=== PATIENT | female | born 1990 | race Two or more races ===

== ENCOUNTER 2017-03-10 19:43 | Emergency (ER) | payer OTHER ==
[2017-03-10 20:08] VITALS: BMI 25.9
[2017-03-10 21:06] LABS: BASOPHIL 0.9 % (0-2.0); MCHC 33.6 g/dl (32.0-36.0); MEAN CELL VOLUME 86.3 fl (80-96); MEAN PLT VOLUME 9.1 fl (7.5-11.1); NEUTROPHILS 62.1 % (42.8-82.8); PLATELET COUNT 282 K/MM3 (134-434); RDW 14.2 % (11.6-15.6); WHITE BLOOD COUNT 14.3 K/mm3 (4.0-10.0)
[2017-03-10 21:17] LABS: URINE APPEARANCE CLEAR; URINE BILIRUBIN NEGATIVE (NEGATIVE); URINE COLOR YELLOW; URINE GLUCOSE (UA) NEGATIVE (NEGATIVE); URINE KETONE NEGATIVE (NEGATIVE); URINE LEUK ESTERASE NEGATIVE (NEGATIVE); URINE NITRITE NEGATIVE (NEGATIVE); URINE PROTEIN NEGATIVE (NEGATIVE); URINE UROBILINOGEN NEGATIVE E.U./dl (0.2-1.0)
[2017-03-10 21:22] LABS: URINE BLOOD 3+ (NEGATIVE)
[2017-03-10 21:36] LABS: URINE RBC 21 /hpf (0-3); URINE WBC 1 /hpf (3-5)
--- NOTE | 2017-03-10 21:43 | PDOC ---
History of Present Illness - General Chief Complaint: Vaginal Bleeding Stated Complaint: VAGINAL BLEEDING Time Seen by Provider: 03/10/17 20:28 - History of Present Illness Initial Comments: 03/10/17 21:39 CHIEF COMPLAINT: vag bldg, 7 weks HISTORY OF PRESENT ILLNESS: 26 yo 7 week F with no significant PMH presents to ED with vaginal bleeding and cramping since yesterday. Patient states she was recently seen for minimal vaginal spotting a week ago but was told "everything was ok" and she was sent home with vitamins. Today she is having "too much bleeding and feels cramping and lower abdominal pain." Patient's LMP was 01/07. She denies any discomfort or change with urination. No recent travel or sick contacts. PAST MEDICAL HISTORY: Denies past medical history FAMILY HISTORY: Denies SOCIAL HISTORY: Denies tobacco, alcohol, illicit drug use. SURGICAL HISTORY: Denies ALLERGIES: No known drug allergies REVIEW OF SYSTEMS General/Constitutional: Denies fever or chills. Denies weakness, weight change. HEENT: Denies change in vision. Denies ear pain or discharge. Denies sore throat. Cardiovascular: Denies chest pain or shortness of breath. Respiratory: Denies cough, wheezing, or hemoptysis. Gastrointestinal: Denies nausea, vomiting, diarrhea or constipation. Denies rectal bleeding. Genitourinary: Denies dysuria, frequency, or change in urination. Musculoskeletal: Denies joint or muscle swelling or pain. Denies neck or back pain. Skin and breasts: Denies rash or easy bruising. PHYSICAL EXAM General Appearance: Well-appearing, appropriately dressed. No apparent distress , no intoxication. HEENT: EOMI, PERRLA, normal ENT inspection, normal voice, TMs normal, pharynx normal. No conjunctival pallor. No photophobia, scleral icterus. Respiratory/Chest: Lungs CTAB. Cardiovascular: RRR. S1, S2. Vascular Pulses: Dorsalis-Pedis (R): 2+, Dorsalis-Pedis (L): 2+ Gastrointestinal/Abdominal: Normal bowel sounds. Abdomen soft, non-distended. No tenderness or rebound tenderness. No organomegaly, pulsatile mass, guarding , hernia, hepatomegaly, splenomegaly. Pelvic: Bloody discharge to vaginal vault. Closed cervix. Suprapubic tenderness. External genitalia normal without lesions. Uterus is nontender and normal in size. Lymphatic: No adenopathy, tenderness. Musculoskeletal/Extremities: Normal inspection. FROM of all extremities, normal capillary refill. Pelvis Stable. No CVA tenderness. No tenderness to extremities, pedal edema, swelling, erythema or deformity. Integumentary: Appropriate color, dry, warm. 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 Fully oriented, alert. Appropriate mood/affect. Motor strength 5/5. No appreciable EOM palsy, facial droop or sensory deficit. 03/11/17 00:27 Past History - Past Medical History Allergies/Adverse Reactions: Allergies Allergy/AdvReac Type Severity Reaction Status Date / Time No Known Allergies Allergy Verified 03/10/17 20:07 Home Medications: Ambulatory Orders Pnv#71/Iron/Folic Acid/Dha [Prena1 Maliha Softgel] 1 each PO DAILY 03/10/17 - Psycho/Social/Smoking Cessation Hx Suicidal Ideation: No Smoking History: Never smoked *Physical Exam - Vital Signs Last Vital Signs Temp Pulse Resp BP Pulse Ox 98.3 F 87 20 120/66 98 03/10/17 20:07 03/10/17 20:07 03/10/17 20:07 03/10/17 20:07 03/10/17 20:07 ED Treatment Course - LABORATORY CBC & Chemistry Diagram: 03/10/17 20:56 - ADDITIONAL ORDERS Additional order review: Laboratory Results 03/10/17 20:56 Urine Color Yellow Urine Appearance Clear Urine pH 5.0 Ur Specific [place] 1.020 Urine Protein Negative Urine Glucose (UA) Negative Urine Ketones Negative Urine Blood 3+ H Urine Nitrite Negative Urine Bilirubin Negative Urine Urobilinogen Negative Ur Leukocyte Esterase Negative Urine RBC 21 Urine WBC 1 Ur Epithelial Cells Rare 03/10/17 20:56 RBC 4.67 MCV 86.3 MCHC 33.6 RDW 14.2 MPV 9.1 Neutrophils % 62.1 Lymphocytes % 29.9 Monocytes % 6.1 Eosinophils % 1.0 Basophils % 0.9 - RADIOLOGY Radiology Studies Ordered: Category Date Time Status TRANSVAGINAL US PREG [US] Stat Ultrasound 03/10/17 20:46 Ordered Medical Decision Making - Medical Decision Making 03/10/17 22:33 26 yo 7 week F with no significant PMH presents to ED with worsening vaginal bleeding. On exam, patient has bloody discharge to vaginal vault and dilation of cervix. R/o threatened/incomplete , ectopic. -beta hCG, CBC, T&S -TV US 03/11/17 00:29 Single live intrauterine Gestational age 6 weeks 1 day heart rate 112 bpm Closed cervix No ovarian torsion. Bilateral arterial waveforms. Read by: Dee Bills M.D. Advised patient to follow up with OB tomorrow. Advised patient of signs and symptoms for return to ER; patient verbalized understanding and agrees to plan. *DC/Admit/Observation/Transfer Diagnosis at time of Disposition: Threatened - Discharge Dispostion Disposition: HOME Condition at time of disposition: Stable Admit: No - Patient Instructions Printed Discharge Instructions: DI for Threatened Additional Instructions: As discussed, please keep your appointment with the litigation counsel on Tuesday. Also as discussed, if you experience more than one soaked pad an hour, increased abdominal pain, fever, vomiting, or any new or worsening symptoms, please return to the ER. Norris discutido, por favor mantenga urrutia felipa con el obstetra el . Tambin norris se discuti, si experimenta ms de keri almohadilla empapada por hora, aumento del dolor abdominal, fiebre, vmito o cualquier nuevo o empeoramiento de los sntomas, por favor regrese a la andrae de emergencias.
[2017-03-11 00:46] VITALS: BP 118/68; PULSE 83; TEMP 98
== END 2017-03-11 00:46 | disposition home or self-care (01) ==
LOC: JER 19:43
DX: O20.0 Threatened abortion (principal); Z3A.01 Less than 8 weeks gestation of pregnancy
CPT/HCPCS: 36415; 76817-TC; 81003; 81015; 84702; 85025; 86850; 86900; 86901; 87086; 99283-25

== ENCOUNTER 2017-03-17 15:46 | Emergency (ER) | payer OTHER ==
[2017-03-17 15:56] VITALS: BP 122/70; PULSE 105; TEMP 99.6; BMI 31.4
--- NOTE | 2017-03-17 18:00 | PDOC ---
History of Present Illness - General Chief Complaint: CVA/TIA Stated Complaint: FEVER, RT/LT SIDE NUMBNESS Time Seen by Provider: 03/17/17 17:27 History Source: Patient Exam Limitations: Language Barrier - History of Present Illness Initial Comments: 03/17/17 18:02 26 yo F with no significant PMHx presents with 3 hr history of leg and arm tingling. She states this morning she went to clinic and given abx for phayngitis. When she went home she had some cramping in her calf that lasted for a few hours but then subsided and feels like numbness now. She has states that her hand cramped up on her. Just her thumb. Now she has some tingling but no pain or weakness. No such incidents in past. Does admit to fevers at home and chills. Denies CP, cough, SOB, abd. pain, N/V. 5 Timing/Duration: 4-6 hours Associated Symptoms: reports: fever/chills Past History - Travel Traveled outside of the country in the last 30 days: No Close contact w/someone who was outside of country & ill: No - Past Medical History Allergies/Adverse Reactions: Allergies Allergy/AdvReac Type Severity Reaction Status Date / Time No Known Allergies Allergy Verified 03/17/17 15:50 Home Medications: Ambulatory Orders NK [No Known Home Medication] 03/17/17 Other medical history: Denies - Immunization History Immunization Up to Date: Yes - Psycho/Social/Smoking Cessation Hx Suicidal Ideation: No Smoking History: Never smoked Have you smoked in the past 12 months: No Information on smoking cessation initiated: No Hx Alcohol Use: No Drug/Substance Use Hx: No Review of Systems - Review of Systems Able to Perform ROS?: Yes Is the patient limited Spanish proficient: Yes Constitutional: Yes: Chills, Fever HEENTM: Yes: Throat Pain, Throat Swelling, Difficulty Swallowing All Other Systems: Reviewed and Negative *Physical Exam - Vital Signs Last Vital Signs Temp Pulse Resp BP Pulse Ox 99.6 F 105 H 19 122/70 100 03/17/17 15:51 03/17/17 15:51 03/17/17 15:51 03/17/17 15:51 03/17/17 17:17 - Physical Exam General Appearance: No: Apparent Distress HEENT: positive: EOMI, AKHIL Neck: positive: Lymphadenopathy (R) Respiratory/Chest: positive: Lungs Clear, Normal Breath Sounds. negative: Respiratory Distress, Accessory Muscle Use Cardiovascular: positive: Regular Rhythm, Regular Rate, S1, S2. negative: Edema , JVD, Murmur Gastrointestinal/Abdominal: positive: Normal Bowel Sounds, Flat, Soft Musculoskeletal: positive: Normal Inspection. negative: CVA Tenderness Extremity: positive: Normal Inspection, Normal Range of Motion. negative: Pedal Edema, Swelling, Calf Tenderness, Erythema Integumentary: positive: Normal Color, Dry, Warm. 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 This most like incidental muscle cramping. most likely from improper sleep. P: * Will give reassurance and will need to follow up with OBGYN on Tuesday for recent spontaneous . *DC/Admit/Observation/Transfer Diagnosis at time of Disposition: Muscle cramp, Numbness and tingling sensation of skin - Discharge Dispostion Disposition: HOME Condition at time of disposition: Stable Admit: No - Patient Instructions Printed Discharge Instructions: DI for Numbness/tingling Additional Instructions: Follow up with OBGYN on Tuesday. Take antibiotics as directed. Tylenol for fevers and pain. Regular diet. Plenty of fluids. Increase activity as tolerated. If pain worsens or symptoms do not improve in 48 hrs. please return to ED. Print Language: IRISH
--- NOTE | 2017-03-17 18:29 | PDOC ---
Attending Attestation - Resident Resident Name: Mahad Valderrama - ED Attending Attestation I have performed the following: I have examined & evaluated the patient, The case was reviewed & discussed with the resident, I agree w/resident's findings & plan, Exceptions are as noted - HPI HPI: 03/17/17 18:24 26-year-old Female, diagnosed with acute strep pharyngitis at [facility] earlier in the day presents with atraumatic paresthesias within the C6 dermatomal distribution on the left as well as intermittent cramping to the left calf which is now resolved. - Physicial Exam PE: 03/17/17 18:27 Patient is awake and alert, well-appearing, in no distress. Cranial nerves II through XII are grossly intact; motor is 5 of 54; gait is stable;fine touch and proprioception are intact and equal bilaterally; there is no pronation drift ; evaluation of lower extremity is reveals no asymmetry, there is no point tenderness, Homans is negative bilaterally; - Medical Decision Making 03/17/17 18:28 Patient is a 26-year-old female, recently diagnosed with acute strep rhinitis who presents with C6 dermatomal paresthesias on the left and left calf cramping. Both symptoms are resolving while in the ER. I do not suspect transverse myelitis or demyelinating disease or epidural abscess as cause of patient's paresthesias. Nor do I suspect left lower extremity DVT at this time. There is no asymmetry or calf tenderness. Both symptoms appear to have resolved in the ER. Patient advised to complete the course of amoxicillin prescribed for the strep pharyngitis and follow-up with medical clinic as needed
== END 2017-03-17 18:19 | disposition home or self-care (01) ==
LOC: JER 15:46
DX: R20.8 Other disturbances of skin sensation (principal); R25.2 Cramp and spasm; J02.0 Streptococcal pharyngitis; B95.5 Unspecified streptococcus as the cause of diseases classified elsewhere
CPT/HCPCS: 99282-25

== ENCOUNTER 2018-03-14 08:00 | Inpatient (IN) | payer OTHER ==
[2018-03-14 08:57] VITALS: BMI 32.3
[2018-03-14 09:15] LABS: BASO % 0.4 % (0-2.0); EOS % 0.6 % (0-4.5); HEMATOCRIT 36.9 % (32.4-45.2); HEMOGLOBIN 12.4 GM/dL (10.7-15.3); LYMPH % 26.5 % (8-40); MCH 28.7 pg (25.7-33.7); MCHC 33.6 g/dl (32.0-36.0); MEAN CELL VOLUME 85.6 fl (80-96); MEAN PLT VOLUME 9.6 fl (7.5-11.1); MONO % 4.3 % (3.8-10.2); NEUT % 68.2 % (42.8-82.8); PLATELET COUNT 248 K/MM3 (134-434); RBC 4.31 M/mm3 (3.60-5.2); RDW 14.5 % (11.6-15.6); WHITE BLOOD COUNT 9.2 K/mm3 (4.0-10.0)
[2018-03-14] MEDS ORDERED: OXYTOCIN 30 UNITS in 0.9% NS 30 UNIT/500 ML INFUS.BAG IVPB ONE (09:17)
[2018-03-14 09:32] LABS: INR 0.89 (0.82-1.09); PROTHROMBIN TIME (PATIENT) 10.1 SEC (9.7-13.0)
[2018-03-14 09:41] LABS: ANION GAP 8 (8-16); BLOOD UREA NITROGEN 16 mg/dL (7-18); CALCIUM 8.8 mg/dL (8.5-10.1); CHLORIDE 106 mmol/L (98-107); CO2 22 mmol/L (21-32); CREATININE 0.4 mg/dL (0.55-1.02); GLUCOSE,RANDOM 82 mg/dL (74-106); POTASSIUM 4.2 mmol/L (3.5-5.1); SODIUM 136 mmol/L (136-145)
--- NOTE | 2018-03-14 10:13 | PN ---
Progress Note (short form) - Note Progress Note: cx 4 cm, 80 vx -2 mi, arom ,clear , fhr cat 1, irregular contraction
[2018-03-14] MEDS ORDERED: DEXTROSE 5%-LACTATED RINGERS 1,000 ML IV SCH (10:30)
[2018-03-14] MEDS ORDERED: BUTORPHANOL TARTRATE 1 MG/ML VIAL IVPUSH ONE (10:48)
[2018-03-14] MEDS ORDERED: PROMETHAZINE HCL 25 MG/1 ML VIAL IVPB ONE (10:48)
--- NOTE | 2018-03-14 10:57 | HP ---
Past Medical History - Primary Care Physician PCP:: Nando Copeland - Admission Chief Complaint: 39 weeks, labor History of Present Illness: 27 yo f edc 03/21/18 39 weeks ,c/o contraction , no rom, no bleeding, cx 4 cm 80 vx -2 mi, fhr cat 1, irregular contraction History Source: Patient Limitations to Obtaining History: Language Barrier - Past Medical History ...: 4 ...Para: 2 ...Term: 2 ...Spon : 1 ...LMP: 06/14/17 ... Weeks Gestation by Dates: 39 ...EDC by Dates: 03/21/18 ...EDC by Sono: 03/21/18 - Past Surgical History Hx Myomectomy: No Hx Transabdominal Cerclage: No - Smoking History Smoking history: Never smoked Have you smoked in the past 12 months: No - Alcohol/Substance Use Hx Alcohol Use: No - Social History Usual Living Arrangement: Yes: With Spouse History of Recent Travel: No Home Medications - Allergies Allergies/Adverse Reactions: Allergies Allergy/AdvReac Type Severity Reaction Status Date / Time No Known Allergies Allergy Verified 03/17/17 15:50 - Home Medications Home Medications: Ambulatory Orders Vitamins (Sjr) - 1 tab PO DAILY 03/14/18 Review of Systems - Review of Systems Constitutional: reports: No Symptoms Eyes: reports: No Symptoms HENT: reports: No Symptoms Neck: reports: No Symptoms Cardiovascular: reports: No Symptoms Respiratory: reports: No Symptoms Gastrointestinal: reports: No Symptoms Genitourinary: reports: No Symptoms Breasts: reports: No Symptoms Reported Musculoskeletal: reports: No Symptoms Integumentary: reports: No Symptoms Neurological: reports: No Symptoms Endocrine: reports: No Symptoms Hematology/Lymphatic: reports: No Symptoms Psychiatric: reports: No Symptoms Physical Exam - Maternity Vital Signs: Vital Signs Temperature 98.2 F 03/14/18 10:00 Pulse Rate 81 03/14/18 10:00 Respiratory Rate 18 03/14/18 10:00 Blood Pressure 121/65 03/14/18 10:00 O2 Sat by Pulse Oximetry (%) Constitutional: Yes: Well Nourished, No Distress, Calm Eyes: Yes: WNL, Conjunctiva Clear, EOM Intact HENT: Yes: WNL, Atraumatic, Normocephalic Neck: Yes: WNL, Supple, Trachea Midline Cardiovascular: Yes: WNL, Regular Rate and Rhythm Breast(s): Yes: WNL - Abdominal Exam/OB Fundal Height: 40 Number of Fetuses: Single Presentation: Vertex Contractions: Yes Regularity: Irregular Intensity: Mod/Strong Monitor Mode: External Heart Rate Location: [facility] Category: I Accelerations: Uniform - Vaginal Exam/OB Vaginal Bleediing: Bloody Show Speculum Exam: No Dilatation (cm): 4 cm Effacement (%): 80 Amniotic Membrane Status: Intact Presentation: Vertex/Position Station: -2 - Physical Exam Musculoskeletal: Yes: WNL Edema: Yes Edema: LLE: Trace, RLE: Trace Deep Tendon Reflex Grade: Normal +2 Psychiatric: Yes: WNL - Labs Lab Results: CBC, BMP 03/14/18 08:45 03/14/18 08:45 Hemorrhage Risk Assessment - Risk Factors Medium Risk Factors: Yes: None High Risk Factors: Yes: None Risk Score: 1 Risk Level: Medium Risk Problem List - Problems (1) with 39 completed weeks gestation Code(s): Z3A.39 - 39 WEEKS GESTATION OF (2) Labor established Code(s): NKN3401 - Assessment/Plan admit, fhm, irregular contraction, pitocin rba discussed, pain management
[2018-03-14] MEDS ORDERED: OXYTOCIN 30 UNITS in 0.9% NS 30 UNIT/500 ML INFUS.BAG IVPB SCH (11:00)
[2018-03-14] MEDS ORDERED: FENTANYL/BUPIVACAINE/NS/PF - PCEA - 50 ML DISP.SYRIN EP ONE (12:40)
[2018-03-14] MEDS ORDERED: BUPIVACAINE HCL/PF 0.25% (2.5MG/ML) 10 ML VIAL ONE (12:48)
[2018-03-14] MEDS ORDERED: LIDO 2%/EPI 1:200000 PRESRVFRE (20 ML SDVIAL) ONE (12:48)
--- NOTE | 2018-03-14 12:48 | PN ---
Progress Note (short form) - Note Progress Note: cx 6 cm 80 vx 0,, fhr good variability, mild variable with contraction. wants epidural . lt side . o2 .decrease pit, revaluate Problem List - Problems (1) with 39 completed weeks gestation Code(s): Z3A.39 - 39 WEEKS GESTATION OF (2) Labor established Code(s): LGX1264 -
[2018-03-14] MEDS ORDERED: LIDOCAINE HCL 1% PRESERVATIVE FREE - 30ML VIAL ONE (12:53)
[2018-03-14] MEDS ORDERED: OXYTOCIN 20 UNITS in 0.9% NS 40 UNIT/2,000 ML INFUS.BAG IV ONE (12:53)
[2018-03-14] MEDS ORDERED: oxyCODONE HCL 5 MG TABLET PO PRN (13:24)
[2018-03-14] MEDS ORDERED: BENZOCAINE 28 GM HEMORRHOIDAL OINTMENT TP PRN (13:24)
[2018-03-14] MEDS ORDERED: BISACODYL 10 MG SUPP.RECT RC PRN (13:24)
[2018-03-14] MEDS ORDERED: BENZOCAINE 20% 57 GM BOTTLE TP PRN (13:24)
[2018-03-14] MEDS ORDERED: WITCH HAZEL 50% (TUCKS) 40 PAD/JAR PAD TP PRN (13:24)
[2018-03-14] MEDS ORDERED: METHYLERGONOVINE MALEATE 0.2 MG/1 ML AMP IM PRN (13:24)
[2018-03-14] MEDS ORDERED: D5W-LR W/ 20 UNITS OXYTOCIN 20 UNIT/1,000 ML INFUS.BAG IV SCH (13:30)
[2018-03-14] MEDS ORDERED: OXYTOCIN 20 UNITS in 0.9% NS 20 UNIT/1,000 ML INFUS.BAG IV SCH (13:30)
[2018-03-14] MEDS: IBUPROFEN 600 MG TABLET (FP) PO PRN ×2 (15:13→20:27)
[2018-03-14] MEDS: ACETAMINOPHEN 325 MG TABLET (FP) PO PRN ×2 (15:15→20:27)
[2018-03-14] MEDS: FERROUS SO4 325 MG TABLET (FP) PO SCH (21:09)
[2018-03-15 09:01] LABS: BASO % 0.2 % (0-2.0); EOS % 0.3 % (0-4.5); HEMATOCRIT 31.9 % (32.4-45.2); HEMOGLOBIN 10.6 GM/dL (10.7-15.3); LYMPH % 19.3 % (8-40); MCH 28.3 pg (25.7-33.7); MCHC 33.1 g/dl (32.0-36.0); MEAN CELL VOLUME 85.3 fl (80-96); MEAN PLT VOLUME 9.2 fl (7.5-11.1); NEUT % 76.2 % (42.8-82.8); PLATELET COUNT 231 K/MM3 (134-434); RBC 3.74 M/mm3 (3.60-5.2); RDW 14.5 % (11.6-15.6); WHITE BLOOD COUNT 11.9 K/mm3 (4.0-10.0)
[2018-03-15] MEDS: PRENATAL VITAMINS W/ FOLIC ACID TABLET (FP) PO SCH (10:05)
[2018-03-15] MEDS: FERROUS SO4 325 MG TABLET (FP) PO SCH ×2 (10:05→21:46)
--- NOTE | 2018-03-15 11:31 | PN ---
Post Progress Note - Subjective Subjective: no complains, except cramps, perineal soreness Post Day: 1 Type of Delivery: Vital Signs: Vital Signs Temperature 98.0 F 03/15/18 04:00 Pulse Rate 79 03/15/18 04:00 Respiratory Rate 18 03/15/18 04:00 Blood Pressure 109/56 03/15/18 04:00 O2 Sat by Pulse Oximetry (%) Breast Exam: Yes: Soft, Other (plans to Bf ). No: Engorged Uterus: Yes: Fundus Firm, Fundus below umbilicus, Non-tender Lochia: Yes: Rubra Lochia, amount: Moderate Extremities: Yes: Calves non-tender Perineum: Yes: Episiotomy Activity: Ambulating - Labs Labs: CBC WBC 11.9 K/mm3 (4.0-10.0) H 03/15/18 08:00 RBC 3.74 M/mm3 (3.60-5.2) 03/15/18 08:00 Hgb 10.6 GM/dL (10.7-15.3) L D 03/15/18 08:00 Hct 31.9 % (32.4-45.2) L 03/15/18 08:00 MCV 85.3 fl (80-96) 03/15/18 08:00 MCH 28.3 pg (25.7-33.7) 03/15/18 08:00 MCHC 33.1 g/dl (32.0-36.0) 03/15/18 08:00 RDW 14.5 % (11.6-15.6) 03/15/18 08:00 Plt Count 231 K/MM3 (134-434) 03/15/18 08:00 MPV 9.2 fl (7.5-11.1) 03/15/18 08:00 Neutrophils % 76.2 % (42.8-82.8) 03/15/18 08:00 Lymphocytes % 19.3 % (8-40) D 03/15/18 08:00 Monocytes % 4.0 % (3.8-10.2) 03/15/18 08:00 Eosinophils % 0.3 % (0-4.5) 03/15/18 08:00 Basophils % 0.2 % (0-2.0) 03/15/18 08:00 Other Findings, Remarks: stable plan discharge tomorrow
[2018-03-15] MEDS: ACETAMINOPHEN 325 MG TABLET (FP) PO PRN ×2 (15:05→21:47)
[2018-03-15] MEDS: IBUPROFEN 600 MG TABLET (FP) PO PRN ×2 (15:06→21:49)
[2018-03-15] MEDS ORDERED: SENNOSIDES/DOCUSATE COMBO (SENNA PLUS) TABLET (UD) PO PRN (22:00)
[2018-03-16 08:19] VITALS: BP 108/65; PULSE 75; TEMP 98.3
[2018-03-16] MEDS: FERROUS SO4 325 MG TABLET (FP) PO SCH (09:14)
[2018-03-16] MEDS: PRENATAL VITAMINS W/ FOLIC ACID TABLET (FP) PO SCH (09:14)
--- NOTE | 2018-03-17 00:18 | DS ---
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 Vital Signs: Vital Signs Temperature 98.3 F 03/16/18 08:14 Pulse Rate 75 03/16/18 08:14 Respiratory Rate 18 03/16/18 08:14 Blood Pressure 108/65 03/16/18 08:14 O2 Sat by Pulse Oximetry (%) Constitutional: Yes: Well Nourished Eyes: Yes: Conjunctiva Clear HENT: Yes: Atraumatic Neck: Yes: Supple Cardiovascular: Yes: Regular Rate and Rhythm Respiratory: Yes: Regular Gastrointestinal: Yes: Normal Bowel Sounds Vaginal Exam: Yes: Normal Cervix: Yes: Normal Uterus: Yes: Firm ....Post : Yes: Uterus firm Breast(s): Yes: WNL Musculoskeletal: Yes: WNL Extremities: Yes: WNL Neurological: Yes: Alert, Oriented ...Motor Strength: WNL Psychiatric: Yes: Alert, Oriented Labs: CBC, BMP 03/15/18 08:00 03/14/18 08:45 Delivery - Delivery Type of Anesthesia: Local Episiotomy/Laceration: Vaginal Extension/lac, 1st degree EBL (cc): 300 Delivery, Single - Stages of Labor Date 1st Stage Initiatied: 03/14/18 Time 1st Stage Initiated: 07:00 Date 2nd Stage Initiated: 03/14/18 Time 2nd Stage Initiated: 12:58 Date of Delivery: 03/14/18 Time of Delivery: 13:04 Time Placenta Delivered: 13:07 - Condition of Infant Payroll Accounting Manager/Night Custodian Present: No Gender: Male Weight: 6 lb 14 oz Position: Left, OA Total Hours ROM (Hrs/Mins): 3hrs 14min - 1 Minute Total Score: 9 5 Minutes Total Score: 9 - [place] Feeding Plan Initial Plan: Elected not to breastfeed exclusively throughout hospitalization Discharge Summary Reason For Visit: LABOR Procedures: Principal: Normal spontaneous vaginal delivery Hospital Course: Routine care. No additional dosage of antibiotic, no blood transfusion required. Condition: Good - Instructions Diet, Activity, Other Instructions: Regular diet No douching, no sexual intercourse x 6 weeks F/U in clinic in 6 weeks Disposition: HOME - Home Medications Comprehensive Discharge Medication List: Ambulatory Orders Vitamins (Sjr) - 1 tab PO DAILY 03/14/18
== END 2018-03-16 11:50 | disposition home or self-care (01) | DRG 560 ==
LOC: JLDR 08:00 → J3W 14:44
PROVIDERS: ADMIT Obstetrics & Gynecology; ATTEND Obstetrics & Gynecology
PROC: 10E0XZZ Delivery of Products of Conception, External Approach (ICD-10-PCS; principal; 2018-03-14)
PROC: 0HQ9XZZ Repair Perineum Skin, External Approach (ICD-10-PCS; 2018-03-14)
DX: O70.0 First degree perineal laceration during delivery (principal); Z3A.39 39 weeks gestation of pregnancy; Z37.0 Single live birth
CPT/HCPCS: 36415; 59409; 80048; 85025; 85610; 85730; 86593; 86850; 86900; 86901